=== PATIENT | female | born 1980 | race American Indian/Alaskan Native ===

== ENCOUNTER 2016-10-10 13:01 | Emergency (ER) | payer MEDICAID ==
--- NOTE | 2016-10-10 13:56 | EDM.PDOC ---
ED HPI GENERAL MEDICAL PROBLEM - General Chief Complaint: Lower Extremity Injury/Pain Stated Complaint: POSSIBLE BLOOD CLOT LT FOOT Time Seen by Provider: 10/10/16 13:30 Source of Information: Reports: Patient History Limitations: Reports: No Limitations - History of Present Illness INITIAL COMMENTS - FREE TEXT/NARRATIVE: History of present illness: 36-year-old female presenting with complaints of a knot on her felder about mid calf. Patient came in verbalizing concerned that she thought she had a blood clot.[] Review of systems: As per history of present illness and below otherwise all systems reviewed and negative. Past medical history: As per history of present illness and as reviewed below otherwise noncontributory. Surgical history: As per history of present illness and as reviewed below otherwise noncontributory. Social history: No reported history of drug or alcohol abuse. Family history: As per history of present illness and as reviewed below otherwise noncontributory. Physical exam: HEENT: Atraumatic, normocephalic, pupils reactive, negative for conjunctival pallor or scleral icterus, mucous membranes moist, throat clear, neck supple, nontender, trachea midline. Lungs: Clear to auscultation, breath sounds equal bilaterally, chest nontender. Heart: S1S2, regular, negative for clicks, rubs, or JVD. Abdomen: Soft, nondistended, nontender. Negative for masses or hepatosplenomegaly. Negative for costovertebral tenderness. Pelvis: Stable nontender. Genitourinary: Deferred. Rectal: Deferred. Extremities: Atraumatic, negative for cords or calf pain. Neurovascular unremarkable, palpable knot noted to left felder with some amount of ecchymosis at site. Neuro: Awake, alert, oriented. Cranial nerves II through XII unremarkable. Cerebellum unremarkable. Motor and sensory unremarkable throughout. Exam nonfocal. Discussed hematoma versus DVT with patient Diagnostics: [X-ray of left tib-fib] Therapeutics: [] Impression: [Felder pain] Plan: [NSAIDS] Definitive disposition and diagnosis as appropriate pending reevaluation and review of above. 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: Musculoskeletal History: Reports: None Other Musculoskeletal History: rt shoulder pain Neurological History: Reports: Headaches, Chronic Psychiatric History: Reports: Anxiety Endocrine/Metabolic History: Reports: None Hematologic History: Reports: Other (See Below) Other Hematologic History: thrombocytosis Immunologic History: Reports: None Oncologic (Cancer) History: Reports: None Dermatologic History: Reports: None - Infectious Disease History Infectious Disease History: Reports: Chicken Pox, Influenza - Past Surgical History Head Surgeries/Procedures: Reports: None GI Surgical History: Reports: Cholecystectomy Female Surgical History: Reports: Breast Biopsy, Section, Tubal Ligation Oncologic Surgical History: Reports: Biopsy of Breast Social & Family History - Tobacco Use Smoking Status *Q: Never Smoker - Caffeine Use Caffeine Use: Reports: Coffee - Recreational Drug Use Recreational Drug Use: No Drug Use in Last 12 Months: No Review of Systems - Review of Systems Review Of Systems: See Below (The history of present illness) ED EXAM, GENERAL - Physical Exam Exam: See Below (The history of present illness) Course - Vital Signs Last Recorded V/S: Last Vital Signs Temp 36.4 C 10/10/16 13:09 Pulse 66 10/10/16 13:09 Resp 16 10/10/16 13:09 BP 131/78 10/10/16 13:09 Pulse Ox 98 10/10/16 13:09 - Orders/Labs/Meds Orders: Active Orders 24 hr Category Date Time Status Tibia Fibula Lt [CR] Stat Exams 10/10/16 13:24 Ordered Departure - Departure Time of Disposition: 14:35 Disposition: Home, Self-Care 01 Condition: Good Clinical Impression: Pain in left felder - Discharge Information Forms: ED Department Discharge Additional Instructions: The following information is given to patients seen in the emergency department who are being discharged to home. This information is to outline your options for follow-up care. We provide all patients seen in our emergency department with a follow-up referral. The need for follow-up, as well as the timing and circumstances, are variable depending upon the specifics of your emergency department visit. If you don't have a primary care physician on staff, we will provide you with a referral. We always advise you to contact your personal physician following an emergency department visit to inform them of the circumstance of the visit and for follow-up with them and/or the need for any referrals to a consulting specialist. The emergency department will also refer you to a specialist when appropriate. This referral assures that you have the opportunity for follow-up care with a specialist. All of these measure are taken in an effort to provide you with optimal care, which includes your follow-up. Under all circumstances we always encourage you to contact your private physician who remains a resource for coordinating your care. When calling for follow-up care, please make the office aware that this follow-up is from your recent emergency room visit. If for any reason you are refused follow-up, please contact the [facility] Emergency Department at and asked to speak to the emergency department charge nurse. You may alternate ice and heat as needed Take 800 mg of ibuprofen every 8 hours as needed Follow-up with PCP in 1-2 days Return to ED as needed as discussed - My Orders Last 24 Hours: My Active Orders 10/10/16 13:24 Tibia Fibula Lt [CR] Stat - Assessment/Plan Last 24 Hours: My Active Orders 10/10/16 13:24 Tibia Fibula Lt [CR] Stat
[2016-10-10 17:00] VITALS: BP 127/78
--- NOTE | 2016-10-11 17:20 | CR ---
EXAM DATE: 10/10/16 PATIENT'S AGE: 36 Patient: ERAN BAGLEY Facility: [place], [place] Site . Site : 1980 Study: XRay Extremity Left Tib.Fib [id number] 1:40:34 PM Ordering Physician: Doctor Foy Final Report: CLINICAL INDICATION: Pain and swelling. Blood clot disorder. Findings: There is a corticated ossicle adjacent to the inferior tip of the lateral malleolus that appears chronic. No other significant bone or joint abnormality is identified. Dictated by Raji Estes MD @ Oct 10 2016 2:18PM (Electronic Signature) Report Signed by Proxy. LIZETTE
== END 2016-10-10 15:24 | disposition home or self-care (01) ==
LOC: MW.ED 13:01
DX: M79.605 Pain in left leg (principal); K21.9 Gastro-esophageal reflux disease without esophagitis; Z88.5 Allergy status to narcotic agent; Z88.6 Allergy status to analgesic agent; Z90.49 Acquired absence of other specified parts of digestive tract
CPT/HCPCS: 73590-26-LT; 73590-LT; 99282; 99283

== ENCOUNTER 2019-06-06 12:40 | Emergency (ER) | payer BC ==
[2019-06-06 13:30] LABS: BLOOD UREA NITROGEN,BUN 13 mg/dL (7.0-18.0); CARBON DIOXIDE,CO2 25.7 mmol/L (21.0-32.0); CHLORIDE,CL 107 mmol/L (98-107); GLUCOSE RANDOM 90 mg/dL (74-106); POTASSIUM,K 3.5 mmol/L (3.5-5.1); SODIUM,NA 142 mmol/L (136-145)
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
[2019-06-06 17:42] VITALS: BP 126/81; PULSE 73
== END 2019-06-06 15:27 | disposition home or self-care (01) ==
LOC: MW.ED 12:40
DX: R07.89 Other chest pain (principal); K21.9 Gastro-esophageal reflux disease without esophagitis; Z79.899 Other long term (current) drug therapy; W86.1XXA Exposure to industrial wiring, appliances and electrical machinery, initial encounter
CPT/HCPCS: 36415; 80053; 81001; 82550; 84484; 85025; 93005; 99285-25

== ENCOUNTER 2020-04-24 08:51 | Day surgery (SDC) | payer BC ==
[~2020-04-24 08:51] MED LIST: Lactated Ringers 1,000 ML IV SCH; Lidocaine 2% 5 ML SDV ONE; Propofol 200 MG/20 ML SDV ONE; fentaNYL 100 MCG/2 ML SDV ONE
[2020-04-24] MEDS ORDERED: Midazolam 1 MG/ML 2 ML SDV ONE (10:25)
--- NOTE | 2020-04-24 10:27 | PCM.PREANE ---
Preanesthetic Assessment - Anesthesia/Transfusion/Family Hx Anesthesia History: Prior Anesthesia Without Reaction Family History of Anesthesia Reaction: No Transfusion History: No Prior Transfusion(s) Intubation History: Unknown - Review of Systems General: No Symptoms Pulmonary: No Symptoms Cardiovascular: No Symptoms Gastrointestinal: Other (bloody diarrhea) Neurological: Tremors Other: Reports: None - Physical Assessment Vital Signs: Last Vital Signs Temp 36.3 C 04/24/20 09:45 Pulse 66 04/24/20 09:45 Resp 16 04/24/20 09:45 BP 118/72 04/24/20 09:45 Pulse Ox 95 04/24/20 09:45 Height: 5 ft 7 in Weight: 100.244 kg ASA Class: 2 Mental Status: Alert & Oriented x3 Airway Class: Mallampati = 2 Dentition: Reports: Normal Dentition Thyro-Mental Finger Breadths: 3 Mouth Opening Finger Breadths: 3 ROM/Head Extension: Full Lungs: Clear to Auscultation, Normal Respiratory Effort Cardiovascular: Regular Rate, Regular Rhythm - Allergies Allergies/Adverse Reactions: Allergies Allergy/AdvReac Type Severity Reaction Status Date / Time acetaminophen [From [place]] Allergy itchy, N&V Verified 04/24/20 10:12 hydrocodone [From [place]] Allergy itchy, N&V Verified 04/24/20 10:12 oxycodone [From Perc[place]] Allergy itch, N&V Verified 04/24/20 10:12 - Blood Product(s) Available: None - Anesthesia Plan Pre-Op Medication Ordered: None - Acknowledgements Anesthesia Type Planned: MAC Pt an Appropriate Candidate for the Planned Anesthesia: Yes Alternatives and Risks of Anesthesia Discussed w Pt/Guardian: Yes Pt/Guardian Understands and Agrees with Anesthesia Plan: Yes PreAnesthesia Questionnaire HEENT History: Reports: Allergic Rhinitis Cardiovascular History: Reports: Other (See Below) (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 for the rest of the . She was confused and had memmory loss for 24 hour period. 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: Musculoskeletal History: Reports: None Neurological History: Reports: CVA Other Neuro History: CVA during in 2009, hx factor V, states "only is a problems when I am or on control" Psychiatric History: Reports: None Endocrine/Metabolic History: Reports: Obesity/BMI 30+ (BMI 34.6) Hematologic History: Reports: Bleeding Disorder, Other (See Below) Other Hematologic History: thrombocytosis, factor five Immunologic History: Reports: None Oncologic (Cancer) History: Reports: None Dermatologic History: Reports: None - Infectious Disease History Infectious Disease History: Reports: Chicken Pox, Influenza - Past Surgical History Head Surgeries/Procedures: Reports: None HEENT Surgical History: Reports: None Cardiovascular Surgical History: Reports: None Respiratory Surgical History: Reports: None GI Surgical History: Reports: Cholecystectomy Female Surgical History: Reports: Breast Biopsy, Section, Hysterectomy, Tubal Ligation Endocrine Surgical History: Reports: None Neurological Surgical History: Reports: None Musculoskeletal Surgical History: Reports: Shoulder Surgery Other Musculoskeletal Surgeries/Procedures:: shoulder arthroscopy Oncologic Surgical History: Reports: Biopsy of Breast - SUBSTANCE USE Tobacco Use Status *Q: Never Tobacco User - HOME MEDS Home Medications: Home Meds Ibuprofen [Motrin] 800 mg PO TID PRN 5 Days #15 tablet 06/06/19 [Rx] - CURRENT (IN HOUSE) MEDS Current Meds: Current Medications Lactated Ringer's (Ringers, Lactated) 1,000 mls @ 125 mls/hr IV [facility] Last Admin: 04/24/20 09:55 Dose: 125 mls/hr Documented by: Discontinued Medications Fentanyl (Sublimaze) Confirm Administered Dose 100 mcg .ROUTE .STK-MED ONE Stop: 04/24/20 07:12 Lidocaine (Xylocaine-Mpf 2%) Confirm Administered Dose 5 ml .ROUTE .STK-MED ONE Stop: 04/24/20 07:12 Propofol (Diprivan 20 Ml) Confirm Administered Dose 400 mg .ROUTE .STK-MED ONE Stop: 04/24/20 07:12
[2020-04-24] MEDS ORDERED: Glycopyrrolate 0.2 MG/ML SDV ONE (10:35)
[2020-04-24] MEDS ORDERED: Propofol 200 MG/20 ML SDV ONE (10:47)
--- NOTE | 2020-04-24 11:28 | PCM.POSTAN ---
POST ANESTHESIA ASSESSMENT - MENTAL STATUS Mental Status: Alert, Oriented - VITAL SIGNS Vital Signs: Last Vital Signs Temp 36.3 C 04/24/20 09:45 Pulse 68 04/24/20 11:20 Resp 11 L 04/24/20 11:20 BP 127/76 04/24/20 11:20 Pulse Ox 96 04/24/20 11:20 - RESPIRATORY Respiratory Status: Respiratory Rate WNL, Airway Patent, O2 Saturation Stable - CARDIOVASCULAR CV Status: Pulse Rate WNL, Blood Pressure Stable - GASTROINTESTINAL GI Status: No Symptoms - PAIN Pain Score: 0 - POST OP HYDRATION Hydration Status: Adequate & Stable - OBSERVATIONS Free Text/Narrative:: No anesthesia problems
--- NOTE | 2020-04-24 11:39 | PCM.OPNOTE ---
- General Post-Op/Procedure Note Date of Surgery/Procedure: 04/24/20 Operative Procedure(s): Colonoscopy with biopsies Findings: Normal colon dictation number [id number] Pre Op Diagnosis: IBS, blood in stool Post-Op Diagnosis: Normal colon Primary Surgeon: Adrian Clay Pathology: Random colon biopsies. Complications: None Condition: Good Free Text/Narrative:: Intake & Output 04/23/20 04/24/20 04/24/20 22:59 06:59 14:59 Intake Total 950 Balance 950
--- NOTE | 2020-04-24 11:49 | PCM48HPAN ---
Post Anesthesia Note - EVALUATION WITHIN 48HRS OF ANESTHETIC Vital Signs in Normal Range: Yes Patient Participated in Evaluation: Yes Respiratory Function Stable: Yes Airway Patent: Yes Cardiovascular Function Stable: Yes Hydration Status Stable: Yes Pain Control Satisfactory: Yes Nausea and Vomiting Control Satisfactory: Yes Mental Status Recovered: Yes Vital Signs: Last Vital Signs Temp 36.3 C 04/24/20 09:45 Pulse 68 04/24/20 11:20 Resp 11 L 04/24/20 11:20 BP 127/76 04/24/20 11:20 Pulse Ox 96 04/24/20 11:20 - COMMENTS/OBSERVATIONS Free Text/Narrative:: No anesthesia problems
[2020-04-24 12:44] VITALS: BP 116/73; PULSE 59
--- NOTE | 2020-04-24 15:57 | OR ---
SURGEON: ROBYN TEMPLE MD DATE OF PROCEDURE: 04/24/2020 PREOPERATIVE DIAGNOSES: 1. Irritable bowel syndrome. 2. Constipation. 3. Bloody diarrhea. POSTOPERATIVE DIAGNOSIS: Normal-appearing colon. PROCEDURE PERFORMED: Colonoscopy with biopsies. PRIMARY SURGEON: Robyn Temple MD ANESTHESIA: General with anesthesiologist. EXTENT OF COLONOSCOPY: To the cecum. WITHDRAWAL TIME: 10 minutes. BOWEL PREP: Very good. LIMITATIONS: None. REASON FOR PROCEDURE: The patient is a pleasant 39-year-old female who says her whole life she has struggled with bowel movements. She says she has never had a regular bowel movement her whole life. She says she usually goes to bathroom once or twice a week. She says she does have a history of bloody diarrhea every year or so. She denies any family history of colon cancer. This will be her first colonoscopy. PROCEDURE IN DETAIL: Physical examination was performed. The major risks and benefits associated with the procedure were explained to the patient in detail. The patient verbalized understanding of the same. The patient was then connected to the appropriate monitoring device and IV started. EKG, pulse, pulse oximetry, blood pressure, and capnography were monitored throughout the entire procedure. Continuous oxygen and sedation were provided by the anesthesiologist. The patient was placed in left lateral decubitus position and sedation began. After adequate sedation was achieved, digital rectal exam was then performed. No rectal masses or polyps were felt. Now, a well-lubricated Olympus colonoscope was entered in the rectum, advanced under direct visualization to the level of the cecum. The patient had a little bit long and tortuous colon, but with some extra-abdominal pressure, we did get to the cecum. The cecum was identified by both visual and anatomic landmarks. Photographs were was taken of the cecal cap and the ileocecal valve. The scope was then slowly withdrawn in somewhat circular fashion looking at the color, texture, anatomy, and integrity of mucosa from the cecum to anal canal. She had some light liquid stool, which was suctioned and irrigated out for a great look at the mucosa. Because of her longstanding history of diarrhea and constipation, I did do some random biopsies. Sent the cecum, ascending, and transverse colon in one jar and the descending and rectum in jar #2. The mucosa looked fairly normal. Scope was retroflexed in the rectum. Scope was then completely removed, procedure was terminated. ENDOSCOPIC DIAGNOSIS: Normal colonoscopy. RECOMMENDATIONS: The patient will follow up in the clinic to go over her pathology. Depending on pathology, the patient will need another colonoscopy likely in 10 years, sooner if she develops signs or symptoms such as change in bowel habits or blood in her stool. DONNIE / JASPER /[id number]
== END 2020-04-24 12:00 | disposition home or self-care (01) ==
LOC: MW.SDS 08:51
PROVIDERS: ATTEND Surgery
DX: K58.0 Irritable bowel syndrome with diarrhea (principal); K59.00 Constipation, unspecified; E66.9 Obesity, unspecified; Z88.5 Allergy status to narcotic agent; Z88.8 Allergy status to other drugs, medicaments and biological substances; Z98.890 Other specified postprocedural states; Z86.73 Personal history of transient ischemic attack (TIA), and cerebral infarction without residual deficits; Z68.34 Body mass index [BMI] 34.0-34.9, adult; Z90.49 Acquired absence of other specified parts of digestive tract
CPT/HCPCS: 45380; J2001; J2250; J2704; J3010; J3490; J7120; 00811; 88305